=== PATIENT | female | born 1990 | race Hispanic/Latino ===

== ENCOUNTER 2018-01-23 16:49 | Emergency (ER) | payer OTHER, SELFPAY ==
--- NOTE | 2018-01-23 18:25 | ER ---
Nurse's Notes [facility] Name: Dayanna Beavers Age: 27 yrs Sex: Female : 1990 Arrival Date: 01/23/2018 Time: 16:52 Bed Treatment Private MD: None, None Diagnosis: Acute upper respiratory infection, unspecified Presentation: 01/23 17:06 Presenting complaint: Patient states: " I've been having body aches, sore throat and a ph cough since yesterday" Pt reports productive cough w/ yellow mucus, sore throat, denies N/V/D or fever. Transition of care: patient was not received from another setting of care. Onset of symptoms was January 23, 2018. Risk Assessment: Do you want to hurt yourself or someone else? Patient reports no desire to harm self or others. Initial Sepsis Screen: Does the patient meet any 2 criteria? No. Patient's initial sepsis screen is negative. Does the patient have a suspected source of infection? No. Patient's initial sepsis screen is negative. Care prior to arrival: None. 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 - Social history:: Smoking status: Patient/guardian denies using tobacco. - Ebola Screening: : Patient negative for fever greater than or equal to 101.5 degrees Fahrenheit, and additional compatible Ebola Virus Disease symptoms Patient denies exposure to infectious person Patient denies travel to an Ebola-affected area in the 21 days before illness onset No symptoms or risks identified at this time. Screenin:24 Abuse screen: Denies threats or abuse. Denies injuries from another. Nutritional aj screening: No deficits noted. Tuberculosis screening: No symptoms or risk factors identified. Fall Risk None identified. Assessment: 17:24 General: Appears in no apparent distress. comfortable, Behavior is calm, cooperative, aj appropriate for age. Pain: Denies pain. Neuro: Level of Consciousness is awake, alert, obeys commands, Oriented to person, place, time, situation, Appropriate for age. Respiratory: Airway is patent Respiratory effort is even, unlabored, Respiratory pattern is regular, symmetrical. Respiratory: Reports cough that is. EENT: Reports nasal congestion nasal discharge. Derm: Skin is intact, is healthy with good turgor, Skin is pink, warm \\T\\ dry. normal. Vital Signs: 17:09 BP 124 / 78; Pulse 79; Resp 18; Temp 98.1(TE); Pulse Ox 100% on R/A; Weight 61.23 kg; ph Height 4 ft. 10 in. (147.32 cm); 18:31 BP 121 / 81; Pulse 78; Resp 20; Pulse Ox 99% on R/A; aj 17:09 Body Mass Index 28.21 (61.23 kg, 147.32 cm) ph ED Course: 16:52 Patient arrived in ED. mr 16:53 None, None is Private Physician. mr 17:09 Triage completed. ph 17:11 Arm band placed on. ph 17:14 Dayanna Rich RN is Primary Nurse. aj 17:18 Jesus Alberto Garcia PA is PHCP. cp 17:18 Grupo Valencia MD is Attending Physician. cp 17:24 Patient has correct armband on for positive identification. aj 17:24 No provider procedures requiring assistance completed. Patient did not have IV access aj during this emergency room visit. 18:23 PHCP role handed off by Jesus Alberto Garcia PA pm1 18:23 Av Mcwilliams NP is PHCP. pm1 18:24 PHCP role handed off by Av Mcwilliams NP cp 18:24 Jesus Alberto Garcia PA is PHCP. cp 18:25 Throat Culture Sent. aj Administered Medications: No medications were administered Outcome: 18:25 Discharge ordered by . cp 18:31 Discharged to home aj 18:31 Discharged to home 18:31 Condition: good 18:31 Discharge instructions given to patient, Instructed on discharge instructions, follow up and referral plans. medication usage, Demonstrated understanding of instructions, follow-up care, medications, Prescriptions given X 2. 18:31 Discharge instructions given to 18:32 Patient left the ED. aj Signatures: Dayanna Rich RN RN aj Rivera, Maria mr Claudine Michaud RN RN Page, Jesus Alberto, PA PA cp Marinas, Av, XEROX MACHINE OPERATOR XEROX MACHINE OPERATOR pm1
--- NOTE | 2018-01-23 18:25 | EDPHYS ---
Physician Documentation [facility] Name: Dayanna Beavers Age: 27 yrs Sex: Female : 1990 Arrival Date: 01/23/2018 Time: 16:52 Bed Treatment Private MD: None, None ED Physician Grupo Valencia HPI: 01/23 17:34 This 27 yrs old Female presents to ER via Ambulatory with complaints of Flu cp Symptoms. 17:34 The patient or guardian reports cough, that is intermittent, with productive sputum, cp that is yellow, flu symptoms, low-grade fever, myalgias. Onset: The symptoms/episode began/occurred yesterday. Associated signs and symptoms: Pertinent positives: sore throat, headache, Pertinent negatives: diarrhea, vomiting. 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 - Social history:: Smoking status: Patient/guardian denies using tobacco. - Ebola Screening: : Patient negative for fever greater than or equal to 101.5 degrees Fahrenheit, and additional compatible Ebola Virus Disease symptoms Patient denies exposure to infectious person Patient denies travel to an Ebola-affected area in the 21 days before illness onset No symptoms or risks identified at this time. ROS: 17:40 Constitutional: Positive for body aches, Negative for chills, fever, poor PO intake. cp 17:40 Eyes: Negative for injury, pain, redness, and discharge. cp 17:40 ENT: Positive for sore throat, Negative for drainage from ear(s), ear pain, difficulty swallowing, difficulty handling secretions. 17:40 Neck: Negative for stiffness. 17:40 Respiratory: Positive for cough, with yellow sputum, Negative for shortness of breath, wheezing. 17:40 Abdomen/GI: Negative for abdominal pain, nausea, vomiting, and diarrhea. 17:40 Skin: Negative for cellulitis, rash. 17:40 Neuro: Positive for headache, Negative for altered mental status, weakness. 17:40 All other systems are negative. Exam: 17:45 Constitutional: The patient appears in no acute distress, alert, awake, non-toxic, well cp developed, well nourished. 17:45 Head/Face: Normocephalic, atraumatic. cp 17:45 Eyes: Periorbital structures: appear normal, Conjunctiva: normal, no exudate, no injection, Sclera: no appreciated abnormality, Lids and lashes: appear normal, bilaterally. 17:45 ENT: External ear(s): are unremarkable, Ear canal(s): are normal, clear, TM's: bulging, is not appreciated, bilaterally, erythema, is not appreciated, bilaterally, Nose: is normal, Mouth: Lips: moist, Oral mucosa: moist, Posterior pharynx: Airway: no evidence of obstruction, patent, Tonsils: no enlargement, no exudate, Uvula: midline, swelling, is not appreciated, erythema, that is mild, exudate, is not appreciated, Voice: is normal. 17:45 Neck: ROM/movement: is normal, is supple, without pain, no range of motions limitations, no meningismus, no nuchal rigidity, Lymph nodes: no appreciated lymphadenopathy. 17:45 Chest/axilla: Inspection: normal, Palpation: is normal, no crepitus, no tenderness. 17:45 Cardiovascular: Rate: normal, Rhythm: regular. 17:45 Respiratory: the patient does not display signs of respiratory distress, Respirations: normal, no use of accessory muscles, no retractions, no splinting, no tachypnea, labored breathing, is not present, Breath sounds: are clear throughout, no decreased breath sounds, no stridor, no wheezing. 17:45 Abdomen/GI: Exam negative for discomfort, distension, guarding, Inspection: abdomen appears normal. 17:45 Back: pain, is absent, ROM is normal. 17:45 Skin: cellulitis, is not appreciated, no rash present. Vital Signs: 17:09 BP 124 / 78; Pulse 79; Resp 18; Temp 98.1(TE); Pulse Ox 100% on R/A; Weight 61.23 kg; ph Height 4 ft. 10 in. (147.32 cm); 18:31 BP 121 / 81; Pulse 78; Resp 20; Pulse Ox 99% on R/A; aj 17:09 Body Mass Index 28.21 (61.23 kg, 147.32 cm) ph MDM: 17:18 Patient medically screened. cp 18:00 Differential diagnosis: bronchitis, flu, URI, strep throat. cp 18:24 Antibiotic administration: Not indicated, the patient has a suspected viral illness. Data reviewed: vital signs, nurses notes, lab test result(s), and as a result, I will discharge patient. 18:24 Counseling: I had a detailed discussion with the patient and/or guardian regarding: the cp historical points, exam findings, and any diagnostic results supporting the discharge/admit diagnosis, lab results, to return to the emergency department if symptoms worsen or persist or if there are any questions or concerns that arise at home. 01/23 17:31 Order name: Strep 01/23 17:31 Order name: Influenza Screen (a \T\ B) 01/23 18:21 Order name: Throat Culture EDVT Administered Medications: No medications were administered Disposition: 01/24 07:18 Co-signature as Attending Physician, Grupo Valencia MD. Disposition: 01/23/18 18:25 Discharged to Home. Impression: Acute upper respiratory infection, unspecified. - Condition is Stable. - Discharge Instructions: Upper Respiratory Infection, Adult, Viral Infections, Cool Mist Vaporizers. - Prescriptions for Ibuprofen 800 mg Oral Tablet - take 1 tablet by ORAL route every 8 hours As needed take with food; 30 tablet. Tessalon Perles 100 mg Oral Capsule - take 1 capsule by ORAL route every 8 hours As needed; 15 capsule. - Work release form, Medication Reconciliation Form, Thank You Letter, Antibiotic Education, Prescription Opioid Use form. - Follow up: Private Physician; When: 2 - 3 days; Reason: Recheck today's complaints. - Problem is new. - Symptoms are unchanged. Signatures: Dispatcher [employer] EDMS Dayanna Rich RN RN aj Hall, Patricia, RN RN Jesus Alberto Greer PA PA cp Starr, Gregory, MD MD Corrections: (The following items were deleted from the chart) 01/23 18:32 18:25 01/23/2018 18:25 Discharged to Home. Impression: Acute upper respiratory aj infection, unspecified. Condition is Stable. Forms are Medication Reconciliation Form, Thank You Letter, Antibiotic Education, Prescription Opioid Use. Follow up: Private Physician; When: 2 - 3 days; Reason: Recheck today's complaints. Problem is new. Symptoms are unchanged.
== END 2018-01-23 18:32 | disposition home or self-care (01) ==
LOC: ER 16:49
DX: J06.9 Acute upper respiratory infection, unspecified (principal); I10 Essential (primary) hypertension; F17.210 Nicotine dependence, cigarettes, uncomplicated
CPT/HCPCS: 87070; 87081; 87804; 99283